=== PATIENT | female | born 1995 | race Caucasian/White ===

== ENCOUNTER → 2016-07-06 22:20 | Observation (INO) ==
[2016-07-06 21:16] LABS: Bilirubin,Urine Negative (Negative); Blood,Urine Negative (Negative); Clarity,Urine Cloudy (Clear); Color,Urine Yellow (Yellow); Glucose,Urine (UA) Normal (Normal); Ketones,Urine Negative (Negative); Leukocyte Esterase,Urine Small (Negative); Nitrite,Urine Negative (Negative); Protein,Urine Trace mg/dL (Neg-Trace); Specific Gravity,Urine > 1.030 (1.010-1.025); Urobilinogen,Urine Normal (Normal)
[2016-07-06 21:18] LABS: Bacteria,Urine Few per hpf (None-Few); Hyaline Casts,Urine None Seen per lpf (None-Few); RBC,Urine 0-3 per hpf (0-3); Squamous Epithelial Cell,Urine Many per lpf (None-Few)
[2016-07-06 21:28] LABS: WBC,Urine 0-3 per hpf (0-3)
--- NOTE | 2016-07-06 22:24 | OB Labor Progress Note ---
Date of Encounter: 07/06/16 Time of Encounter: 22:22 Labor Progress Note - Plan Plan: 20 y/o @ 21 weeks who presents for a PTL eval, she was evaluated and deemed not to be in labor, patient counseled to obtain progesterone as prescribed, UA unremarkable, FHT checked
== END | disposition home or self-care (01) ==
LOC: 1NENULAB
PROVIDERS: ADMIT Student in an Organized Health Care Education/Training Program; ATTEND Student in an Organized Health Care Education/Training Program

== ENCOUNTER → 2016-07-25 12:25 | Observation (INO) ==
--- NOTE | 2016-07-25 11:14 | OB/GYN Progress Note ---
Date of Encounter: 07/25/16 Time of Encounter: 11:11 - Assessment and Plan (1) 24 weeks gestation of Current Visit: Yes Status: Acute admitted for observation (2) History of delivery, currently in second trimester Current Visit: Yes Status: Acute labor evaluation (3) Vaginal discharge during in second trimester Current Visit: Yes Status: Acute vaginosis panel collected and sent to lab. Subjective - Subjective Principal diagnosis: labor evaluation Interval history: Patient is 20 y/o at 24w1d presents to labor and delivery with complaints of cramping and pressure with some discharge. Patient reports +FM, Denies any intercourse or VB. Patient denies any odor or color to discharge, denies itching or burning. Patient denies any urinary symptoms. Patient has history of 3 vaginal deliveries. Earliest delivery was 30 weeks. Patient has not started progesterone yet. Cervical length at 18 weeks was 4.12cm. Patient is scheduled to see Dr. Corley tomorrow in the office. Antepartum ROS: loss of fluid, movement normal, other (pressure), no vaginal bleeding, no contractions Objective - Vital Signs Vital Signs: Intake and Output 07/24/16 07/25/16 07/25/16 23:59 07:59 15:59 Other: Weight 76.9 kg Patient Weight 07/25/16 23:59 Weight 76.9 kg - Exam FHR: auscultation normal FHR comments: FHR 135 bpm moderate variability +15x15 accels no decels noted. No contractions noted on the monitor. Auscultation: bilateral: normal Abdomen: Present: normal appearance, soft, gravid Cervical dilation: Closed Cervix effacement: THick station: -3, ballotable Comments: Speculum exam: moderate amount of white discharge. Cervix appears to be irritated. NO pooling noted, negative nitrazine. SVE closed
[2016-07-25 11:25] LABS: Bilirubin,Urine Negative (Negative); Blood,Urine Negative (Negative); Clarity,Urine Clear (Clear); Color,Urine Yellow (Yellow); Glucose,Urine (UA) Normal (Normal); Ketones,Urine Negative (Negative); Specific Gravity,Urine 1.023 (1.010-1.025)
[2016-07-25 11:26] LABS: Leukocyte Esterase,Urine Small (Negative); Nitrite,Urine Negative (Negative); Protein,Urine Negative (Neg-Trace); Urobilinogen,Urine Normal (Normal)
[2016-07-25 11:27] LABS: Bacteria,Urine Moderate per hpf (None-Few); Squamous Epithelial Cell,Urine Many per lpf (None-Few); WBC,Urine 0-3 per hpf (0-3)
[2016-07-25 12:13] LABS: Candida DNA ***DETECTED*** (Not Detect); Gardnerella DNA Not Detected (Not Detect); Trichomonas DNA Not Detected (Not Detect)
--- NOTE | 2016-07-25 12:17 | Discharge Summary ---
Date of Encounter: 07/25/16 Time of Encounter: 12:15 - Discharge Diagnosis (1) 24 weeks gestation of Priority: Primary Status: Acute (2) History of delivery, currently in second trimester Priority: Secondary Status: Acute (3) Vaginal discharge during in second trimester Priority: Secondary Status: Acute (4) Yeast infection Priority: Secondary Status: Acute Comments: terazol Rx - Discharge Medications Prescriptions: Terconazole [Terazol 3] 20 gm VG HS 3 Days Home Medications: Vit Calc,Iron,Folic [ Vitamins] 1 tab PO DAILY 07/25/16 [ History] Terconazole [Terazol 3] 20 gm VG HS 3 Days 07/25/16 [Rx] Allergies/Adverse Reactions: Allergies No Known Allergies Allergy (Verified 07/25/16 10:34) Data Procedures and tests throughout hospitalization: Laboratory Tests 07/25/16 07/25/16 10:40 11:10 Urine Color Yellow Urine Clarity Clear Urine pH 7.0 Ur Specific [place] 1.023 Urine Protein Negative Urine Glucose (UA) Normal Urine Ketones Negative Urine Blood Negative Urine Nitrite Negative Urine Bilirubin Negative Urine Urobilinogen Normal Ur Leukocyte Esterase Small H Urine Microscopic WBC 0-3 Ur Squamous Epith Cells Many H Urine Bacteria Moderate H Ur Culture Indicated? YES A Stefanie species DNA DETECTED A Gardnerella DNA Probe Not Detected Trichomonas DNA Probe Not Detected Labs on day of discharge: Labs from last 24 hours 07/25/16 07/25/16 11:10 10:40 Urine Color Yellow Urine Clarity Clear Urine pH 7.0 Ur Specific [place] 1.023 Urine Protein Negative Urine Glucose (UA) Normal Urine Ketones Negative Urine Blood Negative Urine Nitrite Negative Urine Bilirubin Negative Urine Urobilinogen Normal Ur Leukocyte Esterase Small H Urine Microscopic WBC 0-3 Ur Squamous Epith Cells Many H Urine Bacteria Moderate H Ur Culture Indicated? 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
== END | disposition home or self-care (01) ==
LOC: 1NENULAB

== ENCOUNTER → 2016-08-11 06:33 | Observation (INO) ==
[2016-08-11 04:16] LABS: Bilirubin,Urine Negative (Negative); Blood,Urine Negative (Negative); Clarity,Urine Clear (Clear); Color,Urine Yellow (Yellow); Glucose,Urine (UA) Normal (Normal); Ketones,Urine Negative (Negative); Leukocyte Esterase,Urine Trace (Negative); Nitrite,Urine Negative (Negative); PH,Urine 6.5 pH Units (5.0-8.0); Protein,Urine Negative (Neg-Trace); Specific Gravity,Urine 1.012 (1.010-1.025); Urobilinogen,Urine Normal (Normal)
[2016-08-11 04:19] LABS: Bacteria,Urine None Seen per hpf (None-Few); Hyaline Casts,Urine None Seen per lpf (None-Few); RBC,Urine 0-3 per hpf (0-3); Squamous Epithelial Cell,Urine Many per lpf (None-Few)
--- NOTE | 2016-08-11 05:10 | OB/GYN Progress Note ---
Date of Encounter: 08/11/16 Time of Encounter: 05:01 - Assessment and Plan (1) with 26 completed weeks gestation Current Visit: Yes Status: Chronic (2) History of delivery, currently in second trimester Current Visit: No Status: Acute Patient is prescribed 17 OHP, but has been noncompliant in receiving the medication. (3) contractions Current Visit: Yes Status: Acute No cervical dilation. Will monitor for an hour awaiting the results of FFN and infection panels. She is not currently dilated. Qualifiers: Trimester: second trimester Qualified Code(s): O47.02 - False labor before 37 completed weeks of gestation, second trimester (4) Vaginal discharge during in second trimester Current Visit: No Status: Acute Testing still pending Subjective - Subjective Principal diagnosis: vaginal pressure "like I need to push her out" Interval history: G 4 P 0-3-0-3 at 26 4/7 weeks presents to labor and delivery complaining of vaginal pressure that persists. She states she went to the restroom and it felt like she needed to push the baby out. She denies any leaking of fluid or vaginal bleeding. She reports good movement. She has a significant history including a 36 week induction for IUGR; 34 week spontaneous delivery; 31 week PPROM. She has been noncompliant this with 17 OHP injections at her home. is also complicated by tobacco abuse and short interval . She states she finished her treatment for yeast infection a few days ago Antepartum ROS: movement normal, contractions (just started feeling some since arrival), no loss of fluid, no vaginal bleeding Objective - Vital Signs Vital Signs: Intake and Output 08/10/16 08/10/16 08/11/16 15:59 23:59 07:59 Other: Weight 76.9 kg Patient Weight 08/11/16 23:59 Weight 76.9 kg - Exam FHR: auscultation normal Abdomen: Present: soft, gravid. Absent: tenderness Cervical dilation: closed Cervix effacement: 0 Comments: SSE: discharge noted, frothy and white. GC/CHl, vaginosis panel and FFN all obtained prior to cervical exam. - Labs Labs: Abnormal lab results Ur Leukocyte Esterase Trace (Negative) H 08/11/16 04:05 Urine Microscopic WBC 3-5 per hpf (0-3) H 08/11/16 04:05 Ur Squamous Epith Cells Many per lpf (None-Few) H 08/11/16 04:05 Ur Culture Indicated? YES (NO) A 08/11/16 04:05
[2016-08-11 06:02] LABS: Candida DNA ***DETECTED*** (Not Detect); Gardnerella DNA Not Detected (Not Detect); Trichomonas DNA Not Detected (Not Detect)
== END | disposition home or self-care (01) ==
LOC: 1NENULAB
PROVIDERS: ADMIT Obstetrics & Gynecology; ATTEND Obstetrics & Gynecology

== ENCOUNTER 2016-08-24 09:35 | Observation (INO) ==
[2016-08-24 10:08] LABS: Bilirubin,Urine Negative (Negative); Blood,Urine Negative (Negative); Clarity,Urine Cloudy (Clear); Color,Urine Yellow (Yellow); Glucose,Urine (UA) Normal (Normal); Ketones,Urine Negative (Negative); Leukocyte Esterase,Urine Small (Negative); Nitrite,Urine Negative (Negative); Protein,Urine Negative (Neg-Trace); Specific Gravity,Urine 1.017 (1.010-1.025); Urobilinogen,Urine Normal (Normal)
[2016-08-24 10:11] LABS: Bacteria,Urine None Seen per hpf (None-Few); Hyaline Casts,Urine None Seen per lpf (None-Few); RBC,Urine 0-3 per hpf (0-3); Squamous Epithelial Cell,Urine Many per lpf (None-Few)
[2016-08-24] MEDS ORDERED: Ringers Solution, Lactated 1,000 ML IVC ONE (10:45)
[2016-08-24 11:11] LABS: Candida DNA Not Detected (Not Detect); Gardnerella DNA ***DETECTED*** (Not Detect); Trichomonas DNA Not Detected (Not Detect)
--- NOTE | 2016-08-24 11:26 | OB/GYN Progress Note ---
Date of Encounter: 08/24/16 Time of Encounter: 11:21 - Assessment and Plan (1) 28 weeks gestation of Current Visit: Yes Status: Acute (2) Encounter for suspected PROM, with rupture of membranes not found Current Visit: Yes Status: Acute Speculum exam shows vaginal vault with white/yellow discharge present, no pooling seen or noted with cough. Nitrazine negative, fern negative from speculum and vaginal swabs. Pt did bring in fluid she leaked at home in saad jar. Fluid tested was nitrazine equiviocal and had crystaling seen on slide, but no ferning, epithelial, WBC or other cells noted that were on vaginal swab. Dr. Nava reviewed slide from saad jar contents. Vaginosis panel sent UA sent Will obtain US for MIRTHA Subjective - Subjective Interval history: at 28+3 complains of a gush and leaking of clear fluid this morning. Pt states she had to use the bathroom and "pee really bad" sat down to pee and had a gush of fluid without urinating. Pt then continued to leak, collected fluid in saad jar, brought jar into traige fluid clear and colorless (similar to bottled water in appearance) fluid. Pt states also has cramping and fees contractions, denies vaginal bleeding. Reports good movement, Betametasone 2 weeks ago, remains on weekly 17-P injections. Antepartum ROS: loss of fluid, movement normal, contractions, no vaginal bleeding Objective - Vital Signs Vital Signs: Intake and Output 08/23/16 08/24/16 08/24/16 23:59 07:59 15:59 Other: Weight 78.8 kg Patient Weight 08/24/16 23:59 Weight 78.8 kg - Exam FHR: auscultation normal FHR comments: Baseline 125 Abdomen: Present: normal appearance, soft, gravid Uterus: Present: normal Cervical dilation: 1/long/ firm - Labs Labs: Abnormal lab results Urine Clarity Cloudy (Clear) A 08/24/16 09:55 Ur Leukocyte Esterase Small (Negative) H 08/24/16 09:55 Urine Microscopic WBC 5-15 per hpf (0-3) H 08/24/16 09:55 Ur Squamous Epith Cells Many per lpf (None-Few) H 08/24/16 09:55 Ur Culture Indicated? YES (NO) A 08/24/16 09:55 Gardnerella DNA Probe DETECTED (Not Detect) A 08/24/16 09:55
[2016-08-24] MEDS ORDERED: Ringers Solution, Lactated 1,000 ML ONE (12:12)
== END 2016-08-24 14:40 | disposition home or self-care (01) ==
LOC: 1NENULAB
PROVIDERS: ADMIT Student in an Organized Health Care Education/Training Program; ATTEND Student in an Organized Health Care Education/Training Program

== ENCOUNTER → 2016-08-28 20:47 | Observation (INO) ==
[2016-08-28 20:24] LABS: Bilirubin,Urine Negative (Negative); Blood,Urine Negative (Negative); Clarity,Urine Cloudy (Clear); Color,Urine Yellow (Yellow); Glucose,Urine (UA) Normal (Normal); Ketones,Urine Negative (Negative); Leukocyte Esterase,Urine Small (Negative); Nitrite,Urine Negative (Negative); PH,Urine 7.5 pH Units (5.0-8.0); Protein,Urine Trace mg/dL (Neg-Trace); Specific Gravity,Urine 1.026 (1.010-1.025); Urobilinogen,Urine Normal (Normal)
[2016-08-28 20:26] LABS: Bacteria,Urine Few per hpf (None-Few); Hyaline Casts,Urine None Seen per lpf (None-Few); RBC,Urine 0-3 per hpf (0-3); Squamous Epithelial Cell,Urine Many per lpf (None-Few)
[~2016-08-28 20:47] MED LIST: Betamethasone Acet/SodPhos 6 MG/ML MDV IM SCH
--- NOTE | 2016-08-28 20:47 | OB/GYN Progress Note ---
Date of Encounter: 08/28/16 Time of Encounter: 20:42 - Assessment and Plan (1) 29 weeks gestation of Current Visit: Yes Status: Acute (2) History of delivery, currently in second trimester Current Visit: No Status: Acute Pt advised to go to pharmacy when she leaves here and start the vaginal progesterone tonight. (3) contractions Current Visit: No Status: Acute Pt reports that contractions have resolved since she presented to triage. She denies any complaints other than pressure at this time. SVE unchanged from her appt 3 days ago. Discharge home with PTL precautions. Qualifiers: Trimester: second trimester Qualified Code(s): O47.02 - False labor before 37 completed weeks of gestation, second trimester Subjective - Subjective Principal diagnosis: contractions Interval history: 21 year-old presenting at 29 weeks gestation with c/o contractions every 15-20 minutes that started around 7pm. She also c/o pelvic pressure. She was diagnosed with BV recently and has had 1 dose of flagyl this am. She was also prescribed progesterone due to her history of PTD at 36, 34, and 31 weeks gestation with which she has not been compliant. She received her first dose of celestone 2 days ago but did not come yesterday to get the second dose. She denies VB, LOF, or other new complaints. Good FM Antepartum ROS: movement normal, contractions, no loss of fluid, no vaginal bleeding Objective - Vital Signs Vital Signs: Intake and Output 08/28/16 08/28/16 08/28/16 07:59 15:59 23:59 Other: Weight 82.9 kg Patient Weight 08/28/16 23:59 Weight 82.9 kg - Exam FHR: category 1 FHR comments: FHT reassuring for GA Auscultation: bilateral: normal Abdomen: Present: soft, gravid. Absent: tenderness Uterus: Absent: tenderness Cervical dilation: 1 Cervix effacement: thick station: high Comments: unable to perform FFN due to current BV
[2016-08-28 20:54] LABS: Mucus,Urine Few (Few)
== END | disposition home or self-care (01) ==
LOC: 1NENULAB
PROVIDERS: ADMIT Obstetrics & Gynecology; ATTEND Obstetrics & Gynecology

== ENCOUNTER → 2016-09-04 10:57 | Observation (INO) ==
[2016-09-04 10:13] LABS: Bilirubin,Urine Negative (Negative); Blood,Urine Negative (Negative); Clarity,Urine Turbid (Clear); Color,Urine Yellow (Yellow); Glucose,Urine (UA) Normal (Normal); Ketones,Urine Negative (Negative); Leukocyte Esterase,Urine Small (Negative); Nitrite,Urine Negative (Negative); Protein,Urine Negative (Neg-Trace); Specific Gravity,Urine 1.023 (1.010-1.025); Urobilinogen,Urine Normal (Normal)
[2016-09-04 10:16] LABS: Bacteria,Urine None Seen per hpf (None-Few); Hyaline Casts,Urine None Seen per lpf (None-Few); RBC,Urine 0-3 per hpf (0-3); Squamous Epithelial Cell,Urine Many per lpf (None-Few)
--- NOTE | 2016-09-04 10:32 | Discharge Summary ---
Date of Encounter: 09/04/16 Time of Encounter: 10:31 - Discharge Medications Home Medications: Vit Calc,Iron,Folic [ Vitamins] 1 tab PO DAILY 07/25/16 [ History] proGESTerone [Progesterone] 50 mg RC DAILY 08/11/16 [History] Allergies/Adverse Reactions: Allergies No Known Allergies Allergy (Verified 07/25/16 10:34) Data Procedures and tests throughout hospitalization: Laboratory Tests 09/04/16 09:55 Urine Color Yellow Urine Clarity Turbid A Urine pH 7.0 Ur Specific [place] 1.023 Urine Protein Negative Urine Glucose (UA) Normal Urine Ketones Negative Urine Blood Negative Urine Nitrite Negative Urine Bilirubin Negative Urine Urobilinogen Normal Ur Leukocyte Esterase Small H Urine Microscopic RBC 0-3 Urine Microscopic WBC 5-15 H Ur Squamous Epith Cells Many H Urine Bacteria None Seen Hyaline Casts None Seen Ur Culture Indicated? YES A Labs on day of discharge: Labs from last 24 hours 09/04/16 09:55 Urine Color Yellow Urine Clarity Turbid A Urine pH 7.0 Ur Specific [place] 1.023 Urine Protein Negative Urine Glucose (UA) Normal Urine Ketones Negative Urine Blood Negative Urine Nitrite Negative Urine Bilirubin Negative Urine Urobilinogen Normal Ur Leukocyte Esterase Small H Urine Microscopic RBC 0-3 Urine Microscopic WBC 5-15 H Ur Squamous Epith Cells Many H Urine Bacteria None Seen Hyaline Casts None Seen Ur Culture Indicated? 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 Patient states after she went to the bathroom she noticed spotting on toilet tissue. Patient is currently using progesterone suppository. Patient denies any vaginal itching or burning. Patient denies any urinary symptoms. Patient reports +FM. Time Attestation: Total time spent providing and/or coordinating discharge services: Time Spent: Less than 30 minutes Exam - Constitutional General appearance IM: A&O X 3, pleasant, answers questions appropriately - Respiratory Respiratory exam: Present: CTAB - Cardiovascular Cardiovascular exam IM: Present: RRR, +S1, +S2 - GI/Abdominal GI/Abdominal exam IM: normal bowel sounds - Neurological Exam Neurological exam: alert, oriented X3, reflexes normal - Other Additional findings: Speculum exam: Moderate amount of white discharge noted. No blood seen on examination. SVE 1/thick/-3. FHR 130 bpm moderate variability. No contractions noted. - VTE Reasons for not Prescribing Prophylaxis: Treatment not Indicated - Low risk for VTE
== END | disposition home or self-care (01) ==
LOC: 1NENULAB
PROVIDERS: ADMIT Obstetrics & Gynecology; ATTEND Obstetrics & Gynecology

== ENCOUNTER → 2016-10-08 17:00 | Observation (INO) ==
[2016-10-08 16:19] LABS: Bilirubin,Urine Negative (Negative); Blood,Urine Negative (Negative); Color,Urine Dark Yellow (Yellow); Glucose,Urine (UA) Normal (Normal); Ketones,Urine Negative (Negative); Leukocyte Esterase,Urine Negative (Negative); Nitrite,Urine Negative (Negative); Protein,Urine Trace mg/dL (Neg-Trace); Specific Gravity,Urine 1.025 (1.010-1.025); Urobilinogen,Urine Normal (Normal)
[2016-10-08 16:36] LABS: Clarity,Urine Clear (Clear)
--- NOTE | 2016-10-08 16:57 | Discharge Summary ---
Date of Encounter: 10/08/16 Time of Encounter: 17:03 - Discharge Diagnosis (1) 34 weeks gestation of Priority: Primary Status: Acute Comments: admitted for labor evalulation (2) contractions Priority: Secondary Status: Acute Comments: UA: WNL no cervical change (3) NST (non-stress test) reactive on surveillance Priority: Secondary Status: Acute Comments: baseline 135 bpm moderate variability +15x15 accels no decels noted. Irregular contractions. Cat. 1 tracing. - Discharge Medications Home Medications: Vit Calc,Iron,Folic [ Vitamins] 1 tab PO DAILY 07/25/16 [ History] proGESTerone [Progesterone] 50 mg VG DAILY 08/11/16 [History] Allergies/Adverse Reactions: 3 Allergy/AdvReac Type Severity Reaction Status Date / Time No Known Allergies Allergy Verified 07/25/16 10:34 Data Procedures and tests throughout hospitalization: Laboratory Tests 10/08/16 15:45 Urine Color Dark Yellow Urine Clarity Clear Urine pH 7.0 Ur Specific [place] 1.025 Urine Protein Trace Urine Glucose (UA) Normal Urine Ketones Negative Urine Blood Negative Urine Nitrite Negative Urine Bilirubin Negative Urine Urobilinogen Normal Ur Leukocyte Esterase Negative Labs on day of discharge: Labs from last 24 hours 10/08/16 15:45 Urine Color Dark Yellow Urine Clarity Clear Urine pH 7.0 Ur Specific [place] 1.025 Urine Protein Trace Urine Glucose (UA) Normal Urine Ketones Negative Urine Blood Negative Urine Nitrite Negative Urine Bilirubin Negative Urine Urobilinogen Normal Ur Leukocyte Esterase Negative Date of admission: 10/08/16 15:37 Primary care physician: PCP NONE Discharging clinician: Ruby Red Anticipated date of discharge: 10/08/16 - Patient Status Disposition: Home, Self-Care Condition: Good Functional capacity at discharge: independent ambulation - Discharge Instructions Follow Up With: NONE,PCP [Primary Care Provider] - Tracy Corley DO [Partnered Physician] - - Diet and Activity Activity: increase activity as tolerated Diet: advance to your usual diet 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 Patient reports +FM. Denies LOF or VB. Patient denies any urinary symptoms. Time Attestation: Total time spent providing and/or coordinating discharge services: Time Spent: Less than 30 minutes Exam - Constitutional General appearance IM: cooperative, A&O X 3, no acute distress - Respiratory Respiratory exam: Present: CTAB - Cardiovascular Cardiovascular exam IM: Present: RRR, +S1, +S2 - GI/Abdominal GI/Abdominal exam IM: normal bowel sounds - Rectal Rectal exam: deferred - Extremities Exam Extremities exam IM: Present: normal capillary refill, radial pulses palpable and symmetrical - Neurological Exam Neurological exam: oriented X3 - VTE Reasons for not Prescribing Prophylaxis: Treatment not Indicated - Low risk for VTE
== END | disposition home or self-care (01) ==
LOC: 1NENULAB
PROVIDERS: ADMIT Obstetrics & Gynecology; ATTEND Obstetrics & Gynecology

== ENCOUNTER 2016-11-06 08:00 | Inpatient (IN) ==
[2016-11-06] MEDS ORDERED: Famotidine 20 MG/2 ML VIAL IVP PRN (11:06)
[2016-11-06] MEDS ORDERED: Metoclopramide 10 MG/2 ML VIAL IVP PRN (11:06)
[2016-11-06] MEDS ORDERED: Ondansetron 4 MG/2 ML VIAL IVP PRN (11:06)
[2016-11-06] MEDS ORDERED: Naloxone 0.4 MG/ML INJ IVP PRN (11:06)
[2016-11-06] MEDS ORDERED: *HR* Nalbuphine 20 MG/ML AMPUL IVP PRN (11:08)
[2016-11-06] MEDS ORDERED: Penicillin G Potassium 5,000,000 UNIT in D5% in Water (Mini-Bag+) 100 ML IVPB ONE (11:08)
[2016-11-06] MEDS ORDERED: Ringers Solution, Lactated 1,000 ML IVC SCH (11:15)
[2016-11-06 11:21] LABS: Basophils % 0.3 %; Eosinophils # 0.2 K/mcL (0.0-0.6); Eosinophils % 1.2 %; Hematocrit 31.8 % (35.3-44.9); Hemoglobin 10.6 g/dL (11.5-15.4); Immature Granulocytes % 0.5 % (0-4); Lymphocytes # 1.8 K/mcL (0.6-4.6); Lymphocytes % 11.7 %; Mean Corpuscular HGB Conc 33.3 g/dL (31.6-35.5); Mean Corpuscular Hemoglobin 30.3 pg (28.0-33.3); Mean Corpuscular Volume 90.9 fL (83.0-100.0); Mean Platelet Volume 9.2 fL (9.4-12.4); Monocytes # 0.8 K/mcL (0.0-1.3); Monocytes % 5.2 %; Neutrophils # 12.4 K/mcL (1.6-8.9); Platelet Count 302 K/mcL (140-400); Red Cell Distribution Width 13.4 % (11.5-14.5); Segmented Neutrophils % 81.1 %
[2016-11-06 11:51] LABS: Amphetamine Screen,Urine Negative ng/mL (Cutoff=1000); Barbiturate Screen,Urine Negative ng/mL (Cutoff=200); Benzodiazepines Screen,Urine Negative ng/mL (Cutoff=200); Cannabinoid Screen,Urine Negative ng/mL (Cutoff = 50); Cocaine Screen,Urine Negative ng/mL (Cutoff= 300); Opiate Screen,Urine Negative ng/mL (Cutoff=300); Phencyclidine Screen,Urine Negative ng/mL (Cutoff=25)
[2016-11-06] MEDS ORDERED: miSOPROStol 100 MCG TABLET PO SCH (12:00)
--- NOTE | 2016-11-06 12:29 | OB/GYN History & Physical ---
Date of Encounter: 11/06/16 Time of Encounter: 12:26 Assessment and Plan (1) 39 weeks gestation of Current visit: Yes Status: Acute Induction of labor with Cytotec Nubain and epidural as desired GBS positive will treat with penicillin Anticipate (2) Previous delivery in third trimester, antepartum Current visit: No Status: Chronic History of Present Illness Chief complaint: Induction of labor HPI: Ms. August is a 21 year old female 39+0 weeks gestation presents for induction of labor. complicated with history of deliveries and patient noncompliance. Patient noncompliant with 17P injections and multiple missed appointments. Patient reports good movement, denies vaginal bleeding, leaking of fluid, or contractions. Labs: Positive rubella immune, varicella immune, GBS positive, all other serologies negative Past Med Surg Social Fam HX - Past Medical History Medical history: no medical history Psychiatric history: bipolar, depression - Past Surgical History Surgical History: other - Social History Smoking Status: Current every day smoker Smokeless Tobacco Status: No Alcohol use: none Drug use: none - Family History Mother Adopted: No Living Status: Still Living Hx Family Cardiac Disorders: Yes (HTN) Hx Family Respiratory Disorders: No Hx Family Cancer: Yes Hx Family GI Disorders: No Hx Family Endocrine Disorder: No Hx Family Neuromuscular Disorders: No Hx Family Neurologic Disorders: No Hx Family HEENT Disorders: No Hx Family Autoimmune Disorders: No Obstetrical History - Pregnancies : 4 Para: 3 Term: 0 : 3 Ab's: 0 Livin Medications and Allergies No Known Home Drugs 10/29/16 [History] 3 Allergy/AdvReac Type Severity Reaction Status Date / Time No Known Allergies Allergy Verified 07/25/16 10:34 Exam - Constitutional Constitutional: well developed, well nourished, no acute distress - Lungs Respiratory exam: CTAB - Cardiovascular Cardiovascular exam: RRR - Abdomen Abdomen: Present: bowel sounds normal, gravid, non tender - Vagina Vagina: Present: normal moisture - Cervix Dilation: 4 Effacement: 75 Station: -1 - Uterus Uterus exam: Present: normal size, normal contour Results Result Diagrams: 11/06/16 11:10 Abnormal lab results WBC 15.3 K/mcL (4.3-11.1) H 11/06/16 11:10 RBC 3.50 M/mcL (3.82-4.97) L 11/06/16 11:10 Hgb 10.6 g/dL (11.5-15.4) L 11/06/16 11:10 Hct 31.8 % (35.3-44.9) L 11/06/16 11:10 MPV 9.2 fL (9.4-12.4) L 11/06/16 11:10 Neutrophils # 12.4 K/mcL (1.6-8.9) H 11/06/16 11:10 All other labs normal. - VTE Reasons for not Prescribing Prophylaxis: Treatment not Indicated - Low risk for VTE
--- NOTE | 2016-11-06 14:44 | Anesthesia Evaluation PreOp ---
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 Significant HX Other Medical History: Denies Any Significant HX Anesthesia History: No Prior Anesthetic Complications, Past Anesthesia (tonsils and adenoids) : Yes (, 39 weeks) Alcohol Use: none Drug use: none Medications and Allergies No Known Home Drugs 10/29/16 [History] 3 Allergy/AdvReac Type Severity Reaction Status Date / Time No Known Allergies Allergy Verified 07/25/16 10:34 - Meds/Allergy Pre-op Review Medications Reviewed: Yes Allergies Reviewed: Yes Beta Blockers on Current Med List: No Anesthesia Results - Labs 11/06/16 11:10 Anesthesia Exam O2 Sat Height 1.6 m Weight 84.2 kg bp 99/49 Height: 63 Weight: 84 - HEENT Pupil (Motor): Pupils equal Mallampati: II Teeth: Normal Oral Opening: Greater than 3 - MENTAL HEALTH PROGRAM SPECIALIST LOC: Oriented MENTAL HEALTH PROGRAM SPECIALIST Motor: Normal RUE, Normal LUE, Normal RLE, Normal LLE, Normal Face MENTAL HEALTH PROGRAM SPECIALIST Sensory: Normal: RUE, LUE, RLE, LLE, Face - Cardiac Rhythm: Regular Murmur: None JVD: No Carotid Bruit: No - Pulmonary Breath Sounds: bilateral Clear Respiratory Effort: Symmetrical Anesthesia Assess/Plan ASA Score: 2 Modified Garfield Scale for Level of Consciousness: Cooperative, oriented, and tranquil Anesthetic Plan: Regional Monitoring Plan: Standard Monitors
[2016-11-06] MEDS ORDERED: Penicillin G Potassium 2,500,000 UNIT in D5% in Water 100 ML IVPB SCH (15:30)
--- NOTE | 2016-11-06 15:43 | OB Labor Progress Note ---
Date of Encounter: 11/06/16 Time of Encounter: 15:40 Labor Progress Note - Subjective Subjective: Pt states feel occasional contraction but they are not painful - Cervix Cervix: 5/75/-1 - Heart Tones Heart Tones: 120/moderate/+accels/-decels - [place]: adjusted - Interventions Interventions: AROM for moderate amount of clear fluid. - Plan Plan: Continue current management plan Pitocin if no cervical change in one hour. Anticpate .
[2016-11-06] MEDS ORDERED: Oxytocin 20 units/ LR 1000 mL 20 UNIT/1,000 ML BAG IVC ONE ×2 (16:15→18:42)
[2016-11-06] MEDS ORDERED: *HR* FentaNYL (PF) 100 MCG/2 ML VIAL ONE (16:16)
[2016-11-06] MEDS ORDERED: Epidural Premix (fent/bupiv) 110 ML EP ONE (16:19)
--- NOTE | 2016-11-06 16:43 | Anesthesia Procedures ---
Date of Encounter: 11/06/16 Time of Encounter: 16:41 Procedures: Anesthesia - Epidural/Spinal Patient ID/Chart reviewed: Yes Patient examined: Yes OB Eval: : 4 OB Eval: Hx Para: 3 OB Eval: Dilated at (cm): 5 OB Eval: Contractions: Non-stressed pattern Consent Obtained: Yes Supplemental Oxygen: None/Room Air Site Prep: Aseptic Technique Patient position: upright Local Anesthetic: Lidocaine 1% Amount of Local Anesthetic used: 3 Touhy Needle Gauge: 18 Touhy Needle Depth (cm): 6 Catheter Depth at Skin (cm): 12 Test Dose (1.5% Lido + Epi): Volume given (mls): 3 Test Dose Result: Negative Loading Dose: 0.25% Marcaine (mls): 10 Loading Dose: Fentanyl (mcg): 100 Loading Dose Administered: Thru Catheter Infusion Med: 0.125% Bupivacaine w/ 2 mcg/ml Fentanyl Infusion Rate (mls/hr): 14 Interspace Used: L2-L3 Loss of Resistance (DEBBIE): Yes Blood: No CSF: No Paresthesia: No
--- NOTE | 2016-11-06 17:45 | OB/GYN Procedure Note ---
Delivery - Delivery Date: 11/06/16 Provider: Tracy Corley Intrapartum events: none Delivery induction: AROM, misoprostol Delivery monitor: external FHT, external uterine Anesthesia: epidural Estimated Blood Loss: 200 - (s) A Delivery Date: 11/06/16 Delivery Time: 17:22 Presentation: vertex Position: MELQUIADES Route of delivery: Gender: Female Viability: Viable Pounds: 6 Ounces: 12 at 1 minute: 8 at 5 mins: 9 Shoulder Dystocia: encountered Shoulder Dystocia Maneuvers: Woody maneuver, suprapubic pressure Shoulder dystocia time elapsed: 20 seconds Specimens collected: cord blood Placenta: spontaneous Cord: nuchal cord, 3 umbilical vessels, nuchal reduced - Repair Episiotomy: none Laceration Description: None - Complications Delivery complications: none Delivery comments: Called to room with patient complete and +2 station. Under maternal effort she delivered a viable female weighing 6 pounds 12 ounces and Apgars 8 and 9 at one and 5 minutes respectively over an intact perineum. Following delivery of the head the was bulb suctioned. There was a loose nuchal cord that was noted and reduced. Shoulder dystocia was encountered that resolved with Woody and suprapubic pressure and lasted a total of 20 seconds. No fundal pressure was given. was placed on mom's abdomen. Cord was clamped and cut. Cord blood was collected. Placenta delivered spontaneously, complete, and intact with three-vessel cord. The were no labial, vaginal, or cervical lacerations on exam. Mother and are recovering in the LDR in stable condition. - Disposition Mom disposition: stable in LDR [place] disposition: stable in LDR
[2016-11-06] MEDS ORDERED: Acetaminophen 325 MG TABLET PO PRN (18:42)
[2016-11-06] MEDS ORDERED: Oxytocin 20 units/ LR 1000 mL 20 UNIT/1,000 ML BAG IVC SCH (18:42)
[2016-11-06] MEDS: Ibuprofen 600 MG TABLET PO PRN (20:36)
[2016-11-07] MEDS: Ibuprofen 600 MG TABLET PO PRN ×2 (02:19→08:45)
[2016-11-07] MEDS ORDERED: Prenatal Vit/FA 1 EACH TABLET PO SCH (09:00)
[2016-11-07] MEDS ORDERED: *HR* HYDROcodone/Acet 5/325 mg TABLET PO ONE (10:31)
--- NOTE | 2016-11-07 10:39 | Discharge Summary ---
Date of Encounter: 11/07/16 Time of Encounter: 10:37 - Discharge Diagnosis (1) Vaginal delivery Priority: Primary Status: Acute Comments: Pt meeting all milestones. She c/o severe cramping that is intermittent. Plan to switch from motrin to toradol. - Discharge Medications Prescriptions: Ketorolac [Toradol] 10 mg PO Q6HR PRN #16 tablet PRN Reason: Pain Docusate [Colace] 100 mg PO BID #60 capsule Home Medications: Docusate [Colace] 100 mg PO BID #60 capsule 11/07/16 [Rx] Ketorolac [Toradol] 10 mg PO Q6HR PRN #16 tablet 11/07/16 [Rx] Vit/FA 1 each PO DAILY tablet 11/07/16 [Rx] Allergies/Adverse Reactions: 3 Allergy/AdvReac Type Severity Reaction Status Date / Time No Known Allergies Allergy Verified 07/25/16 10:34 Data Procedures and tests throughout hospitalization: Laboratory Tests 11/06/16 11/06/16 11:10 11:10 WBC 15.3 H RBC 3.50 L Hgb 10.6 L Hct 31.8 L MCV 90.9 MCH 30.3 MCHC 33.3 RDW 13.4 Plt Count 302 MPV 9.2 L Immature Gran % 0.5 Seg Neutrophils % 81.1 Lymphocytes % 11.7 Monocytes % 5.2 Eosinophils % 1.2 Basophils % 0.3 Neutrophils # 12.4 H Lymphocytes # 1.8 Monocytes # 0.8 Eosinophils # 0.2 Basophils # 0.0 Urine Opiates Screen Negative Ur Barbiturates Screen Negative Ur Phencyclidine Scrn Negative Ur Amphetamines Screen Negative U Benzodiazepines Scrn Negative Urine Cocaine Screen Negative U Marijuana (THC) Screen Negative Labs on day of discharge: Labs from last 24 hours 11/06/16 11/06/16 11:10 11:10 WBC 15.3 H RBC 3.50 L Hgb 10.6 L Hct 31.8 L MCV 90.9 MCH 30.3 MCHC 33.3 RDW 13.4 Plt Count 302 MPV 9.2 L Immature Gran % 0.5 Seg Neutrophils % 81.1 Lymphocytes % 11.7 Monocytes % 5.2 Eosinophils % 1.2 Basophils % 0.3 Neutrophils # 12.4 H Lymphocytes # 1.8 Monocytes # 0.8 Eosinophils # 0.2 Basophils # 0.0 Urine Opiates Screen Negative Ur Barbiturates Screen Negative Ur Phencyclidine Scrn Negative Ur Amphetamines Screen Negative U Benzodiazepines Scrn Negative Urine Cocaine Screen Negative U Marijuana (THC) Screen Negative Date of admission: 11/06/16 08:38 Primary care physician: PCP DOTTY Consults: 11/06/16 18:42 Consult to Debridging Machine Operator [CONS] Routine Comment: Vaginal delivery, consult needed Consult to Roll Hauler [CONS] Routine Reason for SW Consult: non compliance Discharging clinician: Ellen Shearer Anticipated date of discharge: 11/07/16 - Patient Status Disposition: Home, Self-Care Condition: Good Functional capacity at discharge: independent ambulation Overall status at discharge: patient is progressing back to baseline - Discharge Instructions Follow Up With: DOTTY,PCP [Primary Care Provider] - Tracy Corley, [Partnered Physician] - - Diet and Activity Activity: increase activity as tolerated Diet: advance to your usual diet, regular diet Hospital Course Reason for admission: induction of labor Delivery: Episiotomy: none Laceration: none Other procedures: none complications: none Discharge diagnosis: IUP at term delivered baby: female Hospital course: - Delivery Date: 11/06/16 Provider: Tracy Corley Intrapartum events: none Delivery induction: AROM, misoprostol Delivery monitor: external FHT, external uterine Anesthesia: epidural Estimated Blood Loss: 200 - (s) Infant A Delivery Date: 11/06/16 Infant Delivery Time: 17:22 Presentation: vertex Position: MELQUIADES Route of delivery: Gender: Female Viability: Viable Pounds: 6 Ounces: 12 at 1 minute: 8 at 5 mins: 9 Shoulder Dystocia: encountered Shoulder Dystocia Maneuvers: Woody maneuver, suprapubic pressure Shoulder dystocia time elapsed: 20 seconds Specimens collected: cord blood Placenta: spontaneous Cord: nuchal cord, 3 umbilical vessels, nuchal reduced - Repair Episiotomy: none Laceration Description: None - Complications Delivery complications: none - Disposition Mom disposition: home PPD#1 disposition: home with mother Time Attestation: Total time spent providing and/or coordinating discharge services: Time Spent: Less than 30 minutes Exam - Constitutional Vitals: Temp Pulse Resp BP Pulse Ox 99 F 60 16 110/68 98 11/07/16 03:03 11/07/16 03:03 11/07/16 03:03 11/07/16 03:03 11/07/16 03:03 General appearance IM: A&O X 3, no acute distress - Respiratory Respiratory exam: Present: CTAB - Cardiovascular Cardiovascular exam IM: Present: RRR, +S1, +S2 - GI/Abdominal GI/Abdominal exam IM: soft - Rectal Rectal exam: deferred - Uterine Tone: Firm Uterus Position: 2 Fingers Below Umbilicus - Extremities Exam Extremities exam IM: Present: normal inspection - Neurological Exam Neurological exam: normal gait, oriented X3 - Psychiatric Additional comments: reports good mood - Other Additional findings: Pt desires depo bridge to tubal ligation for contraception.
[2016-11-07 17:13] VITALS: BP 117/79
== END 2016-11-07 18:33 | disposition home or self-care (01) | DRG 560 ==
LOC: 1NENULAB 08:38 → 1NENUOBS 20:24
PROVIDERS: ADMIT Obstetrics & Gynecology; ATTEND Obstetrics & Gynecology

== ENCOUNTER 2020-12-25 19:50 | Observation (INO) ==
[2020-12-25] MEDS ORDERED: Ringers Solution, Lactated 1,000 ML IVC ONE (20:09)
[2020-12-25 20:18] LABS: Amorphous Sediment,Urine Few per hpf (None-Few); Bacteria,Urine Few per hpf (None-Few); Bilirubin,Urine Negative (Negative); Blood,Urine Negative (Negative); Clarity,Urine Turbid (Clear); Color,Urine Yellow (Yellow); Glucose,Urine (UA) Normal (Normal); Ketones,Urine Negative (Negative); Leukocyte Esterase,Urine Moderate (Negative); Mucus,Urine Few per lpf (None-Few); Nitrite,Urine Negative (Negative); Protein,Urine Trace mg/dL (Neg-Trace); Specific Gravity,Urine 1.019 (1.010-1.025); Squamous Epithelial Cell,Urine Moderate per hpf (None-Few)
[2020-12-25] MEDS ORDERED: Ringers Solution, Lactated 1,000 ML ONE (20:20)
== END 2020-12-25 21:32 | disposition home or self-care (01) ==
LOC: 1NENULAB
PROVIDERS: ADMIT Obstetrics & Gynecology; ATTEND Obstetrics & Gynecology

== ENCOUNTER → 2021-01-13 20:10 | Observation (INO) ==
[2021-01-13 19:48] LABS: Amorphous Sediment,Urine Few per hpf (None-Few); Bacteria,Urine Few per hpf (None-Few); Bilirubin,Urine Negative (Negative); Blood,Urine Negative (Negative); Clarity,Urine Turbid (Clear); Color,Urine Light-Yellow (Yellow); Glucose,Urine (UA) Normal (Normal); Ketones,Urine Negative (Negative); Leukocyte Esterase,Urine Small (Negative); Mucus,Urine Few per lpf (None-Few); Nitrite,Urine Negative (Negative); Protein,Urine Negative (Neg-Trace); RBC,Urine 0-3 per hpf (0-3); Squamous Epithelial Cell,Urine Few per hpf (None-Few); Urobilinogen,Urine Normal (Normal); WBC,Urine 0-3 per hpf (0-3)
== END | disposition home or self-care (01) ==
LOC: 1NENULAB
PROVIDERS: ADMIT Student in an Organized Health Care Education/Training Program; ATTEND Student in an Organized Health Care Education/Training Program

== ENCOUNTER → 2021-01-17 06:08 | Observation (INO) ==
[2021-01-17 04:00] LABS: Bilirubin,Urine Negative (Negative); Blood,Urine Negative (Negative); Clarity,Urine Clear (Clear); Color,Urine Colorless (Yellow); Glucose,Urine (UA) Normal (Normal); Ketones,Urine Negative (Negative); Leukocyte Esterase,Urine Negative (Negative); Nitrite,Urine Negative (Negative); Protein,Urine Negative (Neg-Trace); Specific Gravity,Urine 1.005 (1.010-1.025); Urobilinogen,Urine Normal (Normal)
[~2021-01-17 06:08] MED LIST changes: +Betamethasone Acet/SodPhos 30 MG/5 ML VIAL IM SCH; -Betamethasone Acet/SodPhos 6 MG/ML MDV IM SCH; +NIFEdipine Immed Rel 10 MG CAPSULE PO SCH
== END | disposition home or self-care (01) ==
LOC: 1NENULAB
PROVIDERS: ADMIT Student in an Organized Health Care Education/Training Program; ATTEND Student in an Organized Health Care Education/Training Program

== ENCOUNTER 2021-01-18 06:35 | Observation (INO) ==
[2021-01-18] MEDS ORDERED: Betamethasone Acet/SodPhos 30 MG/5 ML VIAL IM SCH (07:00)
== END 2021-01-18 06:59 | disposition home or self-care (01) ==
LOC: 1NENULAB
PROVIDERS: ADMIT Registered Nurse; ATTEND Registered Nurse

== ENCOUNTER → 2021-01-27 18:56 | Observation (INO) ==
[2021-01-27 19:16] LABS: Bilirubin,Urine Negative (Negative); Blood,Urine Negative (Negative); Clarity,Urine Clear (Clear); Color,Urine Yellow (Yellow); Glucose,Urine (UA) Normal (Normal); Ketones,Urine Negative (Negative); Leukocyte Esterase,Urine Negative (Negative); Nitrite,Urine Negative (Negative); Protein,Urine Negative (Neg-Trace); Urobilinogen,Urine Normal (Normal)
== END | disposition home or self-care (01) ==
LOC: 1NENULAB
PROVIDERS: ADMIT Advanced Practice Midwife; ATTEND Advanced Practice Midwife

== ENCOUNTER → 2021-02-04 22:18 | Observation (INO) | END | disposition home or self-care (01) | LOC: 1NENULAB | PROVIDERS: ADMIT Registered Nurse; ATTEND Registered Nurse ==

== ENCOUNTER 2021-02-16 04:06 | Inpatient (IN) ==
[2021-02-16] MEDS ORDERED: Metoclopramide 10 MG/2 ML VIAL IVP PRN (04:55)
[2021-02-16] MEDS ORDERED: Azithromycin 500 MG in 0.9 % Sodium Chloride 250 ML IVPB PRN (04:55)
[2021-02-16] MEDS ORDERED: Naloxone 0.4 MG/ML INJ IVP PRN ×2 (04:55→07:43)
[2021-02-16] MEDS ORDERED: Famotidine 20 MG/2 ML VIAL IVP PRN (04:55)
[2021-02-16] MEDS ORDERED: Oxytocin 20 units/ LR 1000 mL 20 UNIT/1,000 ML BAG IVC SCH ×2 (05:00→21:36)
[2021-02-16] MEDS ORDERED: Penicillin G Potassium 5,000,000 UNIT in 0.9 % Sodium Chloride Mini Bag 100 ML IVPB ONE (05:03)
[2021-02-16] MEDS: Ringers Solution, Lactated 1,000 ML IVC SCH ×2 (05:29→13:35)
[2021-02-16 05:35] LABS: Basophils % 0.2 %; Eosinophils # 0.2 K/mcL (0.0-0.6); Hematocrit 32.8 % (35.3-44.9); Hemoglobin 11.6 g/dL (11.5-15.4); Immature Granulocytes % 0.7 % (0-4); Lymphocytes # 2.9 K/mcL (0.6-4.6); Lymphocytes % 17.6 %; Mean Corpuscular HGB Conc 35.4 g/dL (31.6-35.5); Mean Corpuscular Hemoglobin 33.3 pg (28.0-33.3); Mean Corpuscular Volume 94.3 fL (83.0-100.0); Mean Platelet Volume 9.6 fL (9.4-12.4); Monocytes % 6.2 %; Neutrophils # 12.5 K/mcL (1.6-8.9); Platelet Count 365 K/mcL (140-400); Red Blood Count 3.48 M/mcL (3.82-4.97); Red Cell Distribution Width 12.7 % (11.5-14.5); Segmented Neutrophils % 74.3 %; White Blood Count 16.8 K/mcL (4.3-11.1)
[2021-02-16 05:41] LABS: Amphetamine Screen,Urine Negative ng/mL (Cutoff=1000); Barbiturate Screen,Urine Negative ng/mL (Cutoff=200); Benzodiazepines Screen,Urine Negative ng/mL (Cutoff=200); Cannabinoid Screen,Urine Negative ng/mL (Cutoff = 50); Cocaine Screen,Urine Negative ng/mL (Cutoff= 300); Opiate Screen,Urine Negative ng/mL (Cutoff=300); Phencyclidine Screen,Urine Negative ng/mL (Cutoff=25)
[2021-02-16 06:10] LABS: Influenza A PCR Negative (Negative); Influenza B PCR Negative (Negative); Resp. Syncytial Virus PCR Negative (Negative)
[2021-02-16 06:11] LABS: SARS-CoV-2 by PCR (In House) Negative (Negative)
[2021-02-16] MEDS ORDERED: Ropivacaine/PF 0.2% 20 ML VIAL EP ONE (07:43)
[2021-02-16] MEDS ORDERED: EPHEDrine 50 MG/ML VIAL IVP PRN (07:43)
[2021-02-16] MEDS ORDERED: Ondansetron 4 MG/2 ML VIAL IVP PRN (07:43)
[2021-02-16] MEDS ORDERED: *HR* FentaNYL (PF) 100 MCG/2 ML VIAL EP ONE (07:43)
[2021-02-16] MEDS ORDERED: Epidural Premix (fent/bupiv) 110 ML EP SCH (07:45)
[2021-02-16] MEDS: Penicillin G Potassium 2,500,000 UNIT/105 ML MLS IVPB SCH ×2 (09:24→13:34)
[2021-02-16] MEDS ORDERED: Ropivacaine/PF 0.2% 20 ML VIAL ONE (13:05)
[2021-02-16] MEDS ORDERED: Ondansetron ODT 4 MG TAB.RAPDIS SL PRN (21:36)
[2021-02-16] MEDS ORDERED: Measles/Mumps/Rubella Vacc 0.5 ML VIAL SQ PRN (21:36)
[2021-02-16] MEDS ORDERED: Rho Immune Globulin 1,500 UNIT SYRINGE IM PRN (21:36)
[2021-02-16] MEDS ORDERED: Benzocaine/Menthol 56 GM AEROSOL SPRAY TP PRN (21:36)
[2021-02-16] MEDS ORDERED: Lanolin 7 G OINT...G. TP PRN (21:36)
[2021-02-16] MEDS: Acetaminophen 325 MG TABLET PO SCH (22:16)
[2021-02-16] MEDS: Ibuprofen 600 MG TABLET PO SCH (22:17)
[2021-02-17] MEDS: Ibuprofen 600 MG TABLET PO SCH ×3 (03:56→14:22)
[2021-02-17] MEDS: Acetaminophen 325 MG TABLET PO SCH ×3 (03:56→14:22)
[2021-02-17 05:50] LABS: Basophils # 0.1 K/mcL (0.0-0.2); Basophils % 0.3 %; Eosinophils # 0.2 K/mcL (0.0-0.6); Eosinophils % 1.3 %; Hematocrit 31.4 % (35.3-44.9); Hemoglobin 10.4 g/dL (11.5-15.4); Immature Granulocytes % 0.5 % (0-4); Lymphocytes % 19.5 %; Mean Corpuscular HGB Conc 33.1 g/dL (31.6-35.5); Mean Corpuscular Hemoglobin 31.7 pg (28.0-33.3); Mean Corpuscular Volume 95.7 fL (83.0-100.0); Mean Platelet Volume 10.2 fL (9.4-12.4); Monocytes # 1.1 K/mcL (0.0-1.3); Monocytes % 7.4 %; Neutrophils # 10.7 K/mcL (1.6-8.9); Platelet Count 324 K/mcL (140-400); Red Blood Count 3.28 M/mcL (3.82-4.97); Red Cell Distribution Width 12.7 % (11.5-14.5); White Blood Count 15.1 K/mcL (4.3-11.1)
[2021-02-17] MEDS ORDERED: NON-FORMULARY MEDICATION 1 EACH EACH (Prenatal Vitamin Tablet 1 TAB) PO SCH (09:00)
[2021-02-17] MEDS ORDERED: Prenatal Vit/FA 1 EACH TABLET PO SCH (09:00)
[2021-02-17 16:25] VITALS: BP 128/73; PULSE 62; TEMP 98.1; O2SAT 98
== END 2021-02-17 18:28 | disposition home or self-care (01) | DRG 560 ==
LOC: 1NENULAB 04:06 → 1NENUOBS 19:49
PROVIDERS: ADMIT Student in an Organized Health Care Education/Training Program; ATTEND Obstetrics & Gynecology